=== PATIENT | male | born 1990 | race Hispanic/Latino ===

== ENCOUNTER → 2024-05-01 | Outpatient (CLI) | payer BC | END | disposition home or self-care (01) | LOC: RAH 09:22 | PROVIDERS: ATTEND Internal Medicine Gastroenterology | DX: K82.4 Cholesterolosis of gallbladder (principal); R10.32 Left lower quadrant pain | CPT/HCPCS: 76700 ==

== ENCOUNTER → 2024-06-29 | Outpatient (CLI) | payer BC ==
[~2024-06-29] MED LIST: IOHEXOL-350 75 ML VIAL IV ONE
== END | disposition home or self-care (01) ==
LOC: RAH 08:25
PROVIDERS: ATTEND Internal Medicine Gastroenterology
DX: K57.30 Diverticulosis of large intestine without perforation or abscess without bleeding (principal); R10.32 Left lower quadrant pain
CPT/HCPCS: 74178; Q9967